=== PATIENT | male | born 1980 | race Caucasian/White ===

== ENCOUNTER 2018-09-18 12:20 | Emergency (ER) | payer BC ==
[2018-09-18] MEDS ORDERED: Tetracaine HCl/PF 0.5% 4 ML Bottle EYELF ONE (12:37)
[2018-09-18] MEDS ORDERED: Diphtheria,Pertussis(Acell),Tetanus Vaccine 0.5 ML Syringe IM ONE (13:12)
--- NOTE | 2018-09-18 13:16 | EDM.PDOC ---
ED HPI GENERAL MEDICAL PROBLEM - General Chief Complaint: ENT Problem Stated Complaint: IRRITATED EYE Time Seen by Provider: 09/18/18 12:28 Source of Information: Reports: Patient History Limitations: Reports: No Limitations - History of Present Illness INITIAL COMMENTS - FREE TEXT/NARRATIVE: HISTORY AND PHYSICAL: History of present illness: Patient is a 38-year-old male presents to the ED today with concern of left eye irritation 3 days. Patient states he's been exposed to pinkeye as well as potentially got sand in his eye at work. Patient states he got into a clotted stand and started noticing symptoms shortly after that. At the same time, his daughter was diagnosed with pink eye. Patient denies any change in vision or blurry vision. Patient does not wear contacts or glasses. Patient denies fever, chills, chest pain, shortness of breath, or cough. Denies headache, neck stiff ness, change in vision, syncope, or near syncope. Denies nausea, vomiting, abdominal pain, diarrhea, constipation, or dysuria. Has not noted any blood in urine or stool. Patient has been eating and drinking appropriately. Review of systems: As per history of present illness and below otherwise all systems reviewed and negative. Past medical history: As per history of present illness and as reviewed below otherwise noncontributory. Surgical history: As per history of present illness and as reviewed below otherwise noncontributory. Social history: See social history for further information Family history: As per history of present illness and as reviewed below otherwise noncontributory. Physical exam: General: Patient is alert, oriented, and in no acute distress. Patient sitting comfortably on exam table but does appear quite anxious. HEENT: Atraumatic, normocephalic, pupils equal and reactive bilaterally, negative for conjunctival pallor or scleral icterus, mucous membranes moist, TMs normal bilaterally, throat clear, neck supple, nontender, trachea midline. No drooling or trismus noted. No meningeal signs. No hot potato voice noted. Left eye/sclera is injected and tearing. Exam otherwise severely limited due to patient cooperation. Lungs: Clear to auscultation, breath sounds equal bilaterally, chest nontender. Heart: S1S2, regular rate and rhythm without overt murmur Abdomen: Soft, nondistended, nontender. Negative for masses or hepatosplenomegaly. Negative for costovertebral tenderness. Pelvis: Stable nontender. Genitourinary: Deferred. Rectal: Deferred. Skin: Intact, warm, dry. No lesions or rashes noted. Extremities: Atraumatic, negative for cords or calf pain. Neurovascular unremarkable. Neuro: Awake, alert, oriented. Cranial nerves II through XII unremarkable. Cerebellum unremarkable. Motor and sensory unremarkable throughout. Exam nonfocal. Notes: On exam, patient does seem quite anxious I am unable to get a good exam of his eye due to patient cooperation. I did numb the eye using tetracaine ophthalmic, however, patient began to express anxiety. I was unable to visualize the eye. Dr. Diaz, ophthalmology occupational therapy instructor, was contacted on patient. Per Dr. Diaz, he will see patient following ER discharge in his clinic. Discussed the importance of going to this appointment. Voices understanding and is agreeable to plan of care. Denies any further questions or concerns at this time. Diagnostics: Fluoroscene schuler lamp Therapeutics: tetracaine ophthalmic, tdap Prescription: None Impression: Foreign body vs conjunctivitis, left eye Plan: 1. Transfer to Dr. Diaz, clerk rating, [facility] Definitive disposition and diagnosis as appropriate pending reevaluation and review of above. Left Eye Pain Score (Numeric/FACES): 1 - Related Data Allergies Allergy/AdvReac Type Severity Reaction Status Date / Time No Known Allergies Allergy Verified 09/18/18 12:36 Home Meds: Home Meds Albuterol [Ventolin HFA] 2 puff INH ASDIRECTED PRN 09/18/18 [History] Past Medical History Respiratory History: Reports: Asthma - Infectious Disease History Infectious Disease History: Reports: Chicken Pox Social & Family History - Tobacco Use Smoking Status *Q: Never Smoker - Caffeine Use Caffeine Use: Reports: Soda - Recreational Drug Use Recreational Drug Use: No ED ROS GENERAL - Review of Systems Review Of Systems: ROS reveals no pertinent complaints other than HPI. ED EXAM GENERAL W FULL EYE - Physical Exam Exam: See Below (See dictation) Course - Vital Signs Last Recorded V/S: Last Vital Signs Temp 36.1 C 09/18/18 12:33 Pulse 74 09/18/18 12:33 Resp 20 09/18/18 12:33 BP 137/89 09/18/18 12:33 Pulse Ox 97 09/18/18 12:33 - Orders/Labs/Meds Meds: Medications Discontinued Medications Generic Name Dose Route Start Last Admin Trade Name Brad PRN Reason Stop Dose Admin Tetracaine HCl 1 ml 09/18/18 12:37 Tetracaine 0.5% Steri-Unit Katie EYELF 09/18/18 12:38 ASDIRECTED ONE Departure - Departure Time of Disposition: 13:13 (to Dr. Diaz [facility], [place]) Disposition: DC/Tfer to Other 70 Clinical Impression: Irritation of left eye - Discharge Information Referrals: PCP,None [Primary Care Provider] - Additional Instructions: The following information is given to patients seen in the emergency department who are being discharged to home. This information is to outline your options for follow-up care. We provide all patients seen in our emergency department with a follow-up referral. The need for follow-up, as well as the timing and circumstances, are variable depending upon the specifics of your emergency department visit. If you don't have a primary care physician on staff, we will provide you with a referral. We always advise you to contact your personal physician following an emergency department visit to inform them of the circumstance of the visit and for follow-up with them and/or the need for any referrals to a consulting specialist. The emergency department will also refer you to a specialist when appropriate. This referral assures that you have the opportunity for follow-up care with a specialist. All of these measure are taken in an effort to provide you with optimal care, which includes your follow-up. Under all circumstances we always encourage you to contact your private physician who remains a resource for coordinating your care. When calling for follow-up care, please make the office aware that this follow-up is from your recent emergency room visit. If for any reason you are refused follow-up, please contact the [facility] Emergency Department at and asked to speak to the emergency department charge nurse. [facility] [address] [place] [id number] [facility] [address] [place] [id number] 1. Go to Door 1, [facility] to Dr. Diaz 2. Return to ED as needed and as discussed.
== END 2018-09-18 13:45 | disposition other institution (70) ==
LOC: MW.ED 12:20
DX: H57.89 Other specified disorders of eye and adnexa (principal)
CPT/HCPCS: 99282